=== PATIENT | male | born 1995 | race African-American/Black ===

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

== ENCOUNTER 2017-04-02 00:23 | Emergency (ER) | payer BC ==
[~2017-04-02] VITALS: Ht 175.3 cm; Wt 61.9 kg
[2017-04-02 00:23] VITALS: O2SAT 98; Ht 175.3 cm; Wt 61.9 kg
--- NOTE | 2017-04-02 02:12 | EMERGENCY ROOM VISIT NOTE ---
History Report prepared by Joe: Roberta Houston Under the Supervision of: Dr. Tracee Galicia M.D. First contact with patient: 00:30 Chief Complaint: ALCOHOL OVERDOSE Stated Complaint: OVERDOSE/MENTAL HEALTH History of Present Illness The patient is a 21 year old male who presents to the Emergency Room with complaints of an episode of an alcohol overdose occurring prior to arrival. Per police, the patient had approached them earlier in the evening saying he was depressed and upset, but wasn't going to hurt himself. They report that they gave him their number and said to call if his thoughts changed. They stated that they received a phone call from his friend who said the patient had been on the phone with his ex-girlfriend. He states that when he hung up, he asked his friend for his knife because he was done with this. They state that both the patient and his friend are homeless and that is how they met a few weeks ago. The patient states that he has been homeless for a few weeks. He states that he is just cold know and doesn't know what happened. The patient denies suicidal ideation. Per police, patient's friend told them that the patient did some drugs tonight as well. Source of History: patient, police Onset: prior to arrival Position: other (global) Quality: other (overdose) Timing: other (episode) Note: The patient complains of being cold. The patient denies suicidal ideations. Review of Systems See HPI for pertinent positives & negatives. A total of 10 systems reviewed and were otherwise negative. Past Medical & Surgical Substance abuse Family History Patient reports no known family medical history. Social History Smoking Status: Never Smoker Drug Use: marijuana Marital Status: single Housing Status: other (homeless) Occupation Status: employed Current/Historical Medications Scheduled Amphetamine-Dextroamphetamine 20MG (Adderall Xr 20MG), 20 MG PO DAILY Allergies Coded Allergies: Azithromycin (Verified Allergy, Unknown, swelling, 04/02/17) Physical Exam Vital Signs Date Time Temp Pulse Resp B/P (MAP) Pulse Ox O2 Delivery O2 Flow Rate FiO2 04/02/17 10:09 36.5 77 16 126/66 96 04/02/17 03:42 96 15 115/50 96 Room Air 04/02/17 00:34 109 04/02/17 00:23 36.5 107 16 173/72 95 Room Air 04/02/17 00:23 98 Room Air Physical Exam Vital signs reviewed. General: Odor of EtOH in the breath, disheveled 21-year-old male. No signs of trauma. Appears to be intoxicated. HEENT: Mild scleral injection bilaterally, PERRLA, neck supple, dry mucous membranes. Cardiovascular: Regular rate and rhythm, no extra sounds. Pulmonary: Clear to auscultation bilaterally, normal work of breathing. Abdomen: Soft, nontender, nondistended, positive bowel sounds. Musculoskeletal: Upper and lower extremities atraumatic, no peripheral edema Skin: Warm, dry, no rash. Atraumatic. Neurologic: Patient is currently awake and hyperverbal. Psych: Denies SI and HI. Medical Decision & Procedures Laboratory Results 04/02/17 00:38 Red Blood Count 5.66, Mean Corpuscular Volume 85.0, Mean Corpuscular Hemoglobin 29.2, Mean Corpuscular Hemoglobin Concent 34.3, Mean Platelet Volume 10.3, Neutrophils (%) (Auto) 41.7, Lymphocytes (%) (Auto) 50.9, Monocytes (%) (Auto) 6.6, Eosinophils (%) (Auto) 0.1, Basophils (%) (Auto) 0.5, Neutrophils # (Auto) 3.92, Lymphocytes # (Auto) 4.79, Monocytes # (Auto) 0.62, Eosinophils # (Auto) 0.01, Basophils # (Auto) 0.05 04/02/17 00:38 Test 04/02/17 00:34 04/02/17 00:38 Urine Color YELLOW Urine Appearance CLEAR (CLEAR) Urine pH 6.5 (4.5-7.5) Urine Specific [place] 1.003 (1.000-1.030) Urine Protein NEG (NEG) Urine Glucose (UA) NEG (NEG) Urine Ketones NEG (NEG) Urine Occult Blood NEG (NEG) Urine Nitrite NEG (NEG) Urine Bilirubin NEG (NEG) Urine Urobilinogen NEG (NEG) Urine Leukocyte Esterase NEG (NEG) Urine Phencyclidine (PCP) Level NEG (NEG) Ur Amphetamine/Methamphetamine NEG (NEG) MDMA (Ecstasy) Screen NEG (NEG) Urine Cocaine Metabolite NEG (NEG) Urine Marijuana (THC) NEG (NEG) White Blood Count 9.41 K/uL (4.8-10.8) Red Blood Count 5.66 M/uL (4.7-6.1) Hemoglobin 16.5 g/dL (14.0-18.0) Hematocrit 48.1 % (42-52) Mean Corpuscular Volume 85.0 fL (80-100) Mean Corpuscular Hemoglobin 29.2 pg (25-34) Mean Corpuscular Hemoglobin Concent 34.3 g/dl (32-36) Platelet Count 254 K/uL (130-400) Mean Platelet Volume 10.3 fL (7.4-10.4) Neutrophils (%) (Auto) 41.7 % Lymphocytes (%) (Auto) 50.9 % Monocytes (%) (Auto) 6.6 % Eosinophils (%) (Auto) 0.1 % Basophils (%) (Auto) 0.5 % Neutrophils # (Auto) 3.92 K/uL (1.4-6.5) Lymphocytes # (Auto) 4.79 K/uL (1.2-3.4) Monocytes # (Auto) 0.62 K/uL (0.11-0.59) Eosinophils # (Auto) 0.01 K/uL (0-0.5) Basophils # (Auto) 0.05 K/uL (0-0.2) RDW Standard Deviation 45.2 fL (36.4-46.3) RDW Coefficient of Variation 14.7 % (11.5-14.5) Immature Granulocyte % (Auto) 0.2 % Immature Granulocyte # (Auto) 0.02 K/uL (0.00-0.02) Anion Gap 9.0 mmol/L (3-11) Est Creatinine Clear Calc Drug Dose 108.4 ml/min Estimated GFR () 132.3 Estimated GFR (Non- 114.1 BUN/Creatinine Ratio 13.8 (10-20) Calcium Level 9.3 mg/dl (8.5-10.1) Total Bilirubin 0.3 mg/dl (0.2-1) Direct Bilirubin < 0.1 mg/dl (0-0.2) Aspartate Amino Transf (AST/SGOT) 32 U/L (15-37) Alanine Aminotransferase (ALT/SGPT) 51 U/L (12-78) Alkaline Phosphatase 146 U/L (45-117) Total Protein 8.7 gm/dl (6.4-8.2) Albumin 4.3 gm/dl (3.4-5.0) Thyroid Stimulating Hormone (TSH) 1.780 uIu/ml (0.300-4.500) Salicylates Level 1.8 mg/dl (2.8-20) Acetaminophen Level 2 ug/ml (10-30) Ethyl Alcohol mg/dL 156.0 mg/dl (0-3) Laboratory results per my review. ED Course 0039: Past medical records reviewed. The patient was evaluated in room C9. A complete history and physical examination was performed. 0344: The patient is medically cleared at this time. 0730: The patient was signed out to Dr. Chivo Flores at change of shift awaiting a mental health evaluation. Medical Decision Differential diagnosis: Etiologies such as mood disorder, infection, hypoglycemia, electrolyte abnormalities, cardiac sources, intracerebral event, toxicologic, neurologic, as well as others were entertained. This patient was evaluated and appeared to be in no significant distress. Patient was medically cleared after several hours in the emergency department due to his intoxication. The patient was referred for mental health evaluation. Case was signed out to Dr. Flores at the change of shift, pending recommendations. Medication Reconcilliation Current Medication List: was personally reviewed by me Blood Pressure Screening Patient's blood pressure: Elevated blood pressure Blood pressure disposition: Elevated BP felt to be situational Impression Primary Impression: Substance abuse Additional Impression: Suicidal ideation Scribe Attestation The scribe's documentation has been prepared under my direction and personally reviewed by me in its entirety. I confirm that the note above accurately reflects all work, treatment, procedures, and medical decision making performed by me. Departure Information Dispostion Still a Patient Referrals No Doctor, Assigned (PCP) Patient Instructions My [facility] Problem Qualifiers
[2017-04-02 02:24] LABS: HEMATOCRIT 48.1 % (42-52); HEMOGLOBIN 16.5 g/dL (14.0-18.0); MEAN CORPUSCULAR HEMOGLOBIN 29.2 pg (25-34); MEAN CORPUSCULAR HGB CONC 34.3 g/dl (32-36); MEAN PLATELET VOLUME 10.3 fL (7.4-10.4); PLATELET COUNT 254 K/uL (130-400); RED CELL DISTRIBUTION WIDTH CV 14.7 % (11.5-14.5); RED CELL DISTRIBUTION WIDTH SD 45.2 fL (36.4-46.3); WHITE BLOOD COUNT 9.41 K/uL (4.8-10.8)
[2017-04-02 02:34] LABS: ALBUMIN 4.3 gm/dl (3.4-5.0); ALT/SGPT 51 U/L (12-78); AST/SGOT 32 U/L (15-37); BLOOD UREA NITROGEN 13 mg/dl (7-18); CALCIUM 9.3 mg/dl (8.5-10.1); CARBON DIOXIDE 24 mmol/L (21-32); CREATININE 0.96 mg/dl (0.60-1.40); GLUCOSE 93 mg/dl (70-99); POTASSIUM 3.8 mmol/L (3.5-5.1); SODIUM 140 mmol/L (136-145)
[2017-04-02 02:45] LABS: ALKALINE PHOSPHATASE 146 U/L (45-117); TOTAL PROTEIN 8.7 gm/dl (6.4-8.2)
[2017-04-02 03:31] LABS: BASO % 0.5 %; BASO ABS # 0.05 K/uL (0-0.2); EOS % 0.1 %; EOS ABS # 0.01 K/uL (0-0.5); IG# 0.02 K/uL (0.00-0.02); LYMPH % 50.9 %; LYMPH ABS # 4.79 K/uL (1.2-3.4); MONO % 6.6 %; MONO ABS # 0.62 K/uL (0.11-0.59); NEUT % 41.7 %; NEUT ABS # 3.92 K/uL (1.4-6.5)
--- NOTE | 2017-04-02 09:47 | EMERGENCY ROOM VISIT NOTE ---
ED Visit Note Received patient in signout. History and physical verified by me. After sobering up this patient denies being suicidal or homicidal and does not remember making any these statements that he made last night. He was evaluated independently by both case management as well as 3 S. liaison. He was also interviewed by me and I feel he can be safely discharged home. He will return if his symptoms worsen. I counseled him on the dangers of drug and alcohol use. I also strongly recommended that this patient discuss this case with his parents and offered to call his parents for him however the patient is adamantly refusing. Current/Historical Medications Scheduled Amphetamine-Dextroamphetamine 20MG (Adderall Xr 20MG), 20 MG PO DAILY Allergies Coded Allergies: Azithromycin (Verified Allergy, Unknown, swelling, 04/02/17) Vital Signs Date Time Temp Pulse Resp B/P (MAP) Pulse Ox O2 Delivery O2 Flow Rate FiO2 04/02/17 03:42 96 15 115/50 96 Room Air 04/02/17 00:34 109 04/02/17 00:23 36.5 107 16 173/72 95 Room Air 04/02/17 00:23 98 Room Air Laboratory Results 04/02/17 00:38 Red Blood Count 5.66, Mean Corpuscular Volume 85.0, Mean Corpuscular Hemoglobin 29.2, Mean Corpuscular Hemoglobin Concent 34.3, Mean Platelet Volume 10.3, Neutrophils (%) (Auto) 41.7, Lymphocytes (%) (Auto) 50.9, Monocytes (%) (Auto) 6.6, Eosinophils (%) (Auto) 0.1, Basophils (%) (Auto) 0.5, Neutrophils # (Auto) 3.92, Lymphocytes # (Auto) 4.79, Monocytes # (Auto) 0.62, Eosinophils # (Auto) 0.01, Basophils # (Auto) 0.05 04/02/17 00:38 Test 04/02/17 00:34 04/02/17 00:38 Urine Color YELLOW Urine Appearance CLEAR (CLEAR) Urine pH 6.5 (4.5-7.5) Urine Specific [place] 1.003 (1.000-1.030) Urine Protein NEG (NEG) Urine Glucose (UA) NEG (NEG) Urine Ketones NEG (NEG) Urine Occult Blood NEG (NEG) Urine Nitrite NEG (NEG) Urine Bilirubin NEG (NEG) Urine Urobilinogen NEG (NEG) Urine Leukocyte Esterase NEG (NEG) Urine Phencyclidine (PCP) Level NEG (NEG) Ur Amphetamine/Methamphetamine NEG (NEG) MDMA (Ecstasy) Screen NEG (NEG) Urine Cocaine Metabolite NEG (NEG) Urine Marijuana (THC) NEG (NEG) White Blood Count 9.41 K/uL (4.8-10.8) Red Blood Count 5.66 M/uL (4.7-6.1) Hemoglobin 16.5 g/dL (14.0-18.0) Hematocrit 48.1 % (42-52) Mean Corpuscular Volume 85.0 fL (80-100) Mean Corpuscular Hemoglobin 29.2 pg (25-34) Mean Corpuscular Hemoglobin Concent 34.3 g/dl (32-36) Platelet Count 254 K/uL (130-400) Mean Platelet Volume 10.3 fL (7.4-10.4) Neutrophils (%) (Auto) 41.7 % Lymphocytes (%) (Auto) 50.9 % Monocytes (%) (Auto) 6.6 % Eosinophils (%) (Auto) 0.1 % Basophils (%) (Auto) 0.5 % Neutrophils # (Auto) 3.92 K/uL (1.4-6.5) Lymphocytes # (Auto) 4.79 K/uL (1.2-3.4) Monocytes # (Auto) 0.62 K/uL (0.11-0.59) Eosinophils # (Auto) 0.01 K/uL (0-0.5) Basophils # (Auto) 0.05 K/uL (0-0.2) RDW Standard Deviation 45.2 fL (36.4-46.3) RDW Coefficient of Variation 14.7 % (11.5-14.5) Immature Granulocyte % (Auto) 0.2 % Immature Granulocyte # (Auto) 0.02 K/uL (0.00-0.02) Anion Gap 9.0 mmol/L (3-11) Est Creatinine Clear Calc Drug Dose 108.4 ml/min Estimated GFR () 132.3 Estimated GFR (Non- 114.1 BUN/Creatinine Ratio 13.8 (10-20) Calcium Level 9.3 mg/dl (8.5-10.1) Total Bilirubin 0.3 mg/dl (0.2-1) Direct Bilirubin < 0.1 mg/dl (0-0.2) Aspartate Amino Transf (AST/SGOT) 32 U/L (15-37) Alanine Aminotransferase (ALT/SGPT) 51 U/L (12-78) Alkaline Phosphatase 146 U/L (45-117) Total Protein 8.7 gm/dl (6.4-8.2) Albumin 4.3 gm/dl (3.4-5.0) Thyroid Stimulating Hormone (TSH) 1.780 uIu/ml (0.300-4.500) Salicylates Level 1.8 mg/dl (2.8-20) Acetaminophen Level 2 ug/ml (10-30) Ethyl Alcohol mg/dL 156.0 mg/dl (0-3) Departure Information Impression Primary Impression: Substance abuse Dispostion Home / Self-Care Condition GOOD Referrals No Doctor, Assigned (PCP) Forms HOME CARE DOCUMENTATION FORM, School Instructions, Work Instructions, IMPORTANT VISIT INFORMATION Patient Instructions Alcohol Abuse - [facility], [facility], [facility], ED Drug Abuse General Additional Instructions Follow up with [facility]
[2017-04-02 10:09] VITALS: BP 126/66; PULSE 77; TEMP 36.5; O2SAT 96
== END 2017-04-02 10:11 | disposition home or self-care (01) ==
LOC: EDBD 00:23 → C.EDC 00:23 → C.EDA 10:11
DX: F12.10 Cannabis abuse, uncomplicated (principal); F10.10 Alcohol abuse, uncomplicated; R45.851 Suicidal ideations; R03.0 Elevated blood-pressure reading, without diagnosis of hypertension; Z88.1 Allergy status to other antibiotic agents